=== PATIENT | male | born 2000 | race Caucasian/White ===

== ENCOUNTER 2020-04-10 16:46 | Outpatient (REF) | payer OTHER, SELFPAY | END 2020-04-10 16:47 | disposition home or self-care (01) | LOC: HO.LAB 16:46 | PROVIDERS: Visit Provider Internal Medicine | DX: Z20.828 Contact with and (suspected) exposure to other viral communicable diseases (principal) | CPT/HCPCS: U0003 ==

== ENCOUNTER 2020-06-30 08:06 | Outpatient (REF) | payer OTHER, SELFPAY | END 2020-06-30 08:07 | disposition home or self-care (01) | LOC: HO.WFDLDS 08:06 | PROVIDERS: Visit Provider Internal Medicine | DX: Z20.822 Contact with and (suspected) exposure to COVID-19 (principal) | CPT/HCPCS: 36415; C9803; U0003 ==

== ENCOUNTER 2020-07-14 07:08 | Outpatient (REF) | payer OTHER, SELFPAY | END 2020-07-14 07:09 | disposition home or self-care (01) | LOC: HO.WFDLDS 07:08 | PROVIDERS: PCP Physician Assistant; Visit Provider Internal Medicine | DX: Z20.822 Contact with and (suspected) exposure to COVID-19 (principal) | CPT/HCPCS: 36415; C9803; U0003; U0005 ==